=== PATIENT | female | born 1940 | race Caucasian/White ===

== ENCOUNTER 2017-07-18 13:24 | Emergency (ER) | payer MEDICARE, OTHER ==
[~2017-07-18] VITALS: Ht 165.1 cm; Wt 75.0 kg
[2017-07-18 13:25] VITALS: BP 170/78; PULSE 97; RESP 20; TEMP 98.8; O2SAT 94
[2017-07-18] MEDS ORDERED: PROG100C PO (13:57)
[2017-07-18] MEDS ORDERED: ESTR.625 PO (13:57)
[2017-07-18] MEDS ORDERED: IBUPROFEN 400 MG TAB PO ONE (14:00)
[2017-07-18] MEDS ORDERED: CYCLOBENZAPRINE HCL 10 MG TAB PO ONE (14:00)
--- NOTE | 2017-07-18 14:02 | PD ---
HPI Chief Complaint: Back/ Neck Pain or Injury Time Seen by Provider: 13:43 Travel History International Travel<30 days: No Contact w/Intl Traveler<30days: No Traveled to known affect area: No History of Present Illness HPI The patient is a 77-year-old female who presents emergency department for back spasms. The patient states she's had right mid sided back spasms since Thursday. The spasms are intermittent, sharp, and radiates up and down the right side of the back. The patient's spasms occasionally are exacerbated by inspiration, but also occasionally worse with certain movements. She denies any nausea, vomiting, abdominal pain, flank pain, hematuria, dysuria, frequency , or urgency. The patient does have a history of multiple myeloma but denies any mid back pain and states that the pain is intermittent, sharp, and related to spasms. The patient states she's had some low-grade fevers as high as 99.3 home, states her temperature normally runs 97.6. The patient denies any chest pain, shortness of breath, or cough. 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 Past Surgical History Narrative Surgical Bilateral oophorectomy Social History Tobacco Use: No Allergies-Medications (Allergen,Severity, Reaction): Coded Allergies: No Known Allergies (Unverified , 07/18/17) Reported Meds & Prescriptions Reported Meds & Active Scripts Active Reported Progesterone Micronized 100 Mg Cap 100 Mg PO DAILY Premarin (Estrogens Conjugated) 0.625 Mg Tab 0.625 Mg PO DAILY Review of Systems Except as stated in HPI: all other systems reviewed are Neg General / Constitutional: Positive: Fever (temperature is high as 99.3) Cardiovascular: No: Chest Pain or Discomfort Respiratory: Positive: Pleuritic Pain, No: Shortness of Breath Gastrointestinal: No: Nausea, Vomiting, Abdominal Pain Genitourinary: No: Urgency, Frequency, Dysuria, Hematuria Musculoskeletal: Positive: Pain Skin: No Rash Physical Exam Narrative GENERAL: Awake, alert, pleasant 77 year-old female who appears her stated age and is in no acute respiratory distress. SKIN: Focused skin assessment warm/dry. HEAD: Atraumatic. Normocephalic. EYES: No injection or drainage. ENT: No nasal bleeding or discharge. Mucous membranes pink and moist. NECK: Trachea midline. No JVD. CARDIOVASCULAR: Regular rate and rhythm. No murmur appreciated. RESPIRATORY: No accessory muscle use. Clear to auscultation. Breath sounds equal bilaterally. GASTROINTESTINAL: Abdomen soft, non-tender, nondistended. No rebound tenderness. No suprapubic tenderness. No flank tenderness. Back: No tenderness over the thoracic or lumbar vertebrae. Patient has tenderness of the right paravertebral muscle, there is obvious muscle spasm over the affected area. MUSCULOSKELETAL: No obvious deformities. No clubbing. No cyanosis. No edema. NEUROLOGICAL: Awake and alert. No obvious cranial nerve deficits. Motor grossly within normal limits. Normal speech. PSYCHIATRIC: Appropriate mood and affect; insight and judgment normal. Data Data Last Documented VS Vital Signs Date Time Temp Pulse Resp B/P (MAP) Pulse Ox O2 Delivery O2 Flow Rate FiO2 07/18/17 14:27 91 17 159/75 (103) 97 Room Air 07/18/17 13:25 98.8 Orders Orders Ibuprofen (Motrin) (07/18/17 14:00) Cyclobenzaprine (Flexeril) (07/18/17 14:00) Urinalysis - C+S If Indicated (07/18/17 13:46) Labs Laboratory Tests Test 07/18/17 14:00 Urine Color YELLOW Urine Turbidity CLEAR Urine pH 5.5 Urine Specific [place] 1.023 Urine Protein NEG mg/dL Urine Glucose (UA) NEG mg/dL Urine Ketones NEG mg/dL Urine Occult Blood MOD Urine Nitrite NEG Urine Bilirubin NEG Urine Urobilinogen LESS THAN 2.0 MG/DL Urine Leukocyte Esterase NEG Urine RBC 1 /hpf Urine WBC 1 /hpf Urine Squamous Epithelial Cells <1 /hpf Urine Bacteria RARE /hpf Urine Mucus FEW /lpf Microscopic Urinalysis Comment CULT NOT INDICATED MDM Medical Decision Making Medical Screen Exam Complete: Yes Emergency Medical Condition: Yes Medical Record Reviewed: Yes Interpretation(s) Laboratory Tests Test 07/18/17 14:00 Urine Color YELLOW Urine Turbidity CLEAR Urine pH 5.5 Urine Specific [place] 1.023 Urine Protein NEG mg/dL Urine Glucose (UA) NEG mg/dL Urine Ketones NEG mg/dL Urine Occult Blood MOD Urine Nitrite NEG Urine Bilirubin NEG Urine Urobilinogen LESS THAN 2.0 MG/DL Urine Leukocyte Esterase NEG Urine RBC 1 /hpf Urine WBC 1 /hpf Urine Squamous Epithelial Cells <1 /hpf Urine Bacteria RARE /hpf Urine Mucus FEW /lpf Microscopic Urinalysis Comment CULT NOT INDICATED Differential Diagnosis Differential diagnosis includes muscle spasm, pulmonary embolism, nephrolithiasis, pyelonephritis, hydronephrosis, pleural effusion, pneumonia. Narrative Course UA was sent to lab. Physical examination reveals a right paravertebral muscle that has spasm, the patient was shown, [place] in her hands on both sides, the difference between the muscles. The patient was administered ibuprofen and Flexeril in the emergency department. UA revealed moderate blood but no RBCs, no evidence of infection. The patient will be treated for back spasm with Flexeril and ibuprofen. She is advised to follow-up with her primary physician and return if symptoms worsen or progress. Diagnosis Primary Impression: Back spasm Patient Instructions: General Instructions Additional Instructions: Medications as directed. Follow-up with your primary physician. Apply heat and /or ICE/hot to the affected area. Return if symptoms worsen or progress. Med/Other Pt SpecificInfo: Prescription(s) given Scripts Cyclobenzaprine (Flexeril) 10 Mg Tab 10 MG PO TID for Muscle Spasm, #30 TAB 0 Refills Prov: Raul Jessica MD 07/18/17 Ibuprofen (Ibuprofen) 400 Mg Tab 400 MG PO Q6H Y for PAIN SCALE 1 TO 10, #20 TAB 0 Refills Prov: Raul Jessica MD 07/18/17 Disposition: 01 DISCHARGE HOME Condition: Stable Raul Jessica MD Jul 18, 2017 14:02
[2017-07-18 14:27] VITALS: BP 159/75; PULSE 91; RESP 17; O2SAT 97
[2017-07-18 14:44] LABS: BACTERIA, URINE RARE /hpf; BLOOD, URINE MOD (NEG); COMMENT (UR) CULT NOT INDICATED; CULTURE IF INDICATED CULT NOT INDICATED; GLUCOSE,URINE NEG (NEG); KETONE, URINE NEG (NEG); MUCUS URINE FEW /lpf (OCC); NITRITE,URINE NEG (NEG); PH, URINE 5.5 (5.0-8.5); SQUAMOUS EPITHELIAL CELL URINE <1 /hpf (0-5); URINE COLOR YELLOW (YELLW/STRAW)
[2017-07-18] MEDS ORDERED: IBUP400T20 PO (14:57)
[2017-07-18] MEDS ORDERED: CYCL1TAB29 PO (14:57)
[2017-07-18 15:01] VITALS: RESP 16
== END 2017-07-18 15:18 | disposition home or self-care (01) ==
LOC: NEPD 13:24
DX: M62.830 Muscle spasm of back (principal); R50.9 Fever, unspecified; Z79.899 Other long term (current) drug therapy
CPT/HCPCS: 81001; 99283